=== PATIENT | female | born 1955 ===

== ENCOUNTER 2021-04-09 22:47 | Inpatient (IN) | payer MEDICARE, MEDICAID ==
[~2021-04-09] VITALS: Ht 154.9 cm; Wt 62.7 kg
[2021-04-10] VITALS (7 sets, daily range): BP systolic 130–148; BP diastolic 55–84; PULSE 57–66; TEMP 97.3–98.4
[2021-04-10] MEDS ORDERED: GLUCOPHAGE500 MG/TAB PO (01:30)
[2021-04-10] MEDS ORDERED: NORVASC 5MG5 MG/TAB PO (01:30)
[2021-04-10] MEDS ORDERED: ZOCOR 20MG20 MG PO (01:31)
[2021-04-10] MEDS ORDERED: PROZAC 20MG20 MG PO (01:31)
[2021-04-10] MEDS ORDERED: PROTONIX 40MG T40 MG PO (01:31)
[2021-04-10] MEDS ORDERED: XANAX 1MG1 MG PO (01:31)
[2021-04-10] MEDS ORDERED: OZEMPIC0.25 MG/0. SQ (01:32)
[2021-04-10] MEDS ORDERED: DITROPAN 5MG TAB5 MG PO (01:32)
[2021-04-10] MEDS ORDERED: SINGULAIR 110 MG/TAB PO (01:33)
[2021-04-10] MEDS ORDERED: MOBIC15 MG PO (01:33)
[2021-04-10] MEDS ORDERED: TOPROL XL100 MG PO (01:33)
[2021-04-10] MEDS ORDERED: NORCO 325 MG-7.1 TAB PO (01:33)
[2021-04-10] MEDS ORDERED: SYNTHROID0.175 MG PO (01:34)
[2021-04-10] MEDS ORDERED: ASPIRIN 81M81 MG/TA2 PO (01:34)
[2021-04-10] MEDS ORDERED: NEURONTIN100 MG/CAP PO (01:34)
[2021-04-10 01:35] LABS: MUCOUS Present /lpf; PH 6 (5-8); SQUAMOUS EPITHELIAL None Seen /hpf; URINE APPEARANCE Clear; URINE BACTERIA None Seen /hpf; URINE BILIRUBIN Negative (NEGATIVE); URINE BLOOD 3+ (NEGATIVE); URINE COLOR Yellow; URINE GLUCOSE Negative (NEGATIVE); URINE KETONE Negative (NEGATIVE); URINE LEUKOCYTE ESTERASE 1+ (NEGATIVE); URINE NITRATE Negative (NEGATIVE); URINE PROTEIN(semi-quant) 1+ (NEGATIVE); URINE RBC 20-50 /hpf; URINE UROBILINOGEN Negative (NEGATIVE)
[2021-04-10 01:50] LABS: COLLECTION METHOD CLEAN CATCH
[2021-04-10 03:42] LABS: CALCIUM 8.2 mg/dL (8.4-10.2); CREATININE, serum 0.85 mg/dL (0.57-1.11); POTASSIUM 3.3 mmol/L (3.5-4.5)
--- NOTE | 2021-04-10 05:41 | NUR ---
pt arrived to medical floor at midnight to room 310 via stretcher by ems. pt is a/ox3, vss, 02 room air, collazo patent and draining noted, IV pt admitted with infiltrated this nurse DC'd it and initiated new one. pt reports pain to back 02/20, pt reports diahhrea, denies n,v. Pt is uneasy on feet and is SBA. N/s infusing at 250ml/hr to left forearm IV, sodium Bicard drip infusing 50ml/hr piggyback. pt oriented to room, hospital policy. med rec complete. all questions/concerns answered.
[2021-04-10 06:39] LABS: BASO # 0.1 (0.0-0.2); BASO % 0.8 % (0.0-2.0); EOS # 0.4 (0.0-0.7); EOS % 3.8 % (0-4.0); GRAN # 7.9 (1.4-6.5); GRAN % 74.7 % (42.2-75.2); HEMATOCRIT 37.3 % (37.0-47.0); HEMOGLOBIN 12.7 g/dl (12.5-16.0); LYMPH # 1.5 (1.2-3.4); LYMPH % 14.3 % (20.0-51.0); MEAN CELL VOLUME 98 fl (80.0-100.0); MEAN CORPUSCULAR HEMOGLOBIN 33 pg (27.0-31.0); MEAN CORPUSCULAR HGB CONC 34 g/dl (33.0-37.0); MEAN PLATELET VOLUME 9.5 fl (7.4-10.4); MONO # 0.6 (0.1-0.6); PLATELET COUNT 287 K/mm3 (130-400); RED BLOOD COUNT 3.82 M/mm3 (4.10-5.30); REDCELL DISTRIBUTION WIDTH-CV 14.3 % (11.5-14.5)
[2021-04-10 07:14] LABS: CREATININE, serum 0.85 mg/dL (0.57-1.11); POTASSIUM 4.2 mmol/L (3.5-4.5)
--- NOTE | 2021-04-10 07:50 | NUR ---
PT IN BATHROOM, ATTEMPTED TO GET UP AND FELL ON THE FLOOR IN THE BATHROOM. ON ASSESSMENT THE PATIENT DOES NOT HAVE ANY VISIBLE INJURIES. PATIENT DID NOT HIT HER HEAD. PRIMARY RN, CHAR WAS NOTIFIED.
--- NOTE | 2021-04-10 10:16 | NUR ---
Pt awake upon entry to room, OT in room with Pt. No C/O pain at this time. Shift assessment complete, left Pt call light in reach, Pt sitting in recliner, chair alarm on.
--- NOTE | 2021-04-10 14:17 | NUR ---
roundhouse worker met with patient to discuss discharge plan. Patient reports to living at her apartment prior to coming here. Patient's is currently residing at [facility] in [place], [place]. Patient reports to having children but was unable to tell me how many she had, where they're at and phone numbers to them. She was able to recall that one of her children is "Kanwal" and "thinks" she lives in [place], [place] but that Kanwal refuses to give her mother her phone number. Reports that she has a neighbor named Harjit ([phone]) who drives her to visit her every Friday.Patients reports that prior to admission she had been fully independent with activities of daily living and does not utilize any medical equipment to assist with mobility. Patient reports that she has a PCP and "thinks" that her name is Samantha at [facility]. Patient reports that she uses the [facility] for perscriptions. roundhouse worker educated the patient that PT/OT recommend a SNF placement and the patient verbalizes her agreement and states that she want's to go where her is at. This medical social consultant contacted and faxed a referral to [facility] who states they are able to accept the patient. Facility reports that the emergency contact listed for the patients is his niece Meenakshi ([phone]). *Discharge plan: [facility]*
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
--- NOTE | 2021-04-10 16:25 | NUR ---
Yvonne from [facility] contacted me asking about possible dc. [facility] is willing to come pick the patient up, but asks for frequent updates so they can arrange transportation. Patient and physician notified of acceptance.
[2021-04-11 03:21] VITALS: BP 144/66; PULSE 59; TEMP 98.4
--- NOTE | 2021-04-11 07:35 | NUR ---
RECEIVED REPORT FROM WENDI. PT SITTING UPRIGHT IN BED. ASSISTED PT TO CHAIR. STAT LOCK REPLACED ON ERAZO DUE TO PREVIOUS NO LONGER ATTACHED. ALL NEEDS ASKED AND ADDRESSED. CHAIR ALARM TURNED ON. ADVISED TO CALL FOR ASSISTANCE TO STAND UP AND MOVE.
[2021-04-11 08:02] LABS: BASO # 0.1 (0.0-0.2); BASO % 0.6 % (0.0-2.0); EOS # 0.3 (0.0-0.7); EOS % 3.2 % (0-4.0); GRAN % 69.3 % (42.2-75.2); HEMATOCRIT 37.5 % (37.0-47.0); HEMOGLOBIN 12.7 g/dl (12.5-16.0); LYMPH # 1.7 (1.2-3.4); LYMPH % 19.7 % (20.0-51.0); MEAN CELL VOLUME 97 fl (80.0-100.0); MEAN CORPUSCULAR HEMOGLOBIN 33 pg (27.0-31.0); MEAN CORPUSCULAR HGB CONC 34 g/dl (33.0-37.0); MEAN PLATELET VOLUME 9.8 fl (7.4-10.4); MONO # 0.6 (0.1-0.6); MONO % 6.7 % (1.7-9.3); PLATELET COUNT 280 K/mm3 (130-400); RED BLOOD COUNT 3.85 M/mm3 (4.10-5.30); REDCELL DISTRIBUTION WIDTH-CV 14.1 % (11.5-14.5)
[2021-04-11 08:05] VITALS: BP 155/83; PULSE 54; TEMP 98.9
[2021-04-11 08:31] LABS: CALCIUM 8.5 mg/dL (8.4-10.2); CREATININE, serum 0.8 mg/dL (0.57-1.11); POTASSIUM 3.3 mmol/L (3.5-4.5)
[2021-04-11 11:18] VITALS: BP 127/59; PULSE 50; TEMP 98.7
[2021-04-11 16:00] VITALS: BP 125/61; PULSE 52; TEMP 97.9
--- NOTE | 2021-04-11 16:04 | NUR ---
Typesetting Machine Operator/Tender spoke with Yvonne at [facility] and advised that patient will be ready for discharge tomorrow. Yvonne advised that she will bulk picker patient tomorrow afternoon. RACHEL was contacted by [employer] Typesetting Machine Operator/Tender out of [place] and provided update. Discharge Plan: [facility]
--- NOTE | 2021-04-11 19:06 | NUR ---
REPORT GIVEN TO ANNELISE HUGHES
[2021-04-11 20:17] VITALS: BP 100/50; PULSE 60; TEMP 98.4
[2021-04-11 23:43] VITALS: BP 135/76; PULSE 56; TEMP 98.5
[2021-04-12 04:08] VITALS: BP 146/79; BP 165/77; PULSE 57; TEMP 98.1
[2021-04-12 06:56] LABS: BASO # 0.1 (0.0-0.2); BASO % 0.7 % (0.0-2.0); EOS # 0.4 (0.0-0.7); EOS % 3.9 % (0-4.0); GRAN # 6.1 (1.4-6.5); GRAN % 68.3 % (42.2-75.2); HEMATOCRIT 41.1 % (37.0-47.0); HEMOGLOBIN 14.1 g/dl (12.5-16.0); LYMPH # 1.8 (1.2-3.4); LYMPH % 19.9 % (20.0-51.0); MEAN CELL VOLUME 98 fl (80.0-100.0); MEAN CORPUSCULAR HEMOGLOBIN 34 pg (27.0-31.0); MEAN CORPUSCULAR HGB CONC 34 g/dl (33.0-37.0); MEAN PLATELET VOLUME 10.2 fl (7.4-10.4); MONO # 0.6 (0.1-0.6); MONO % 6.8 % (1.7-9.3); PLATELET COUNT 304 K/mm3 (130-400); RED BLOOD COUNT 4.21 M/mm3 (4.10-5.30)
[2021-04-12 07:56] LABS: CALCIUM 8.8 mg/dL (8.4-10.2); CREATININE, serum 0.86 mg/dL (0.57-1.11); POTASSIUM 3.9 mmol/L (3.5-4.5)
--- NOTE | 2021-04-12 08:14 | NUR ---
Resident complained of being cold. Added blankets for warmth. She is sitting up in bed eating breakfast.
[2021-04-12 08:18] VITALS: BP 154/74; PULSE 51; TEMP 98
--- NOTE | 2021-04-12 11:38 | NUR ---
Bookie collaborated with Yvonne at [facility] who advised transportation would arrive between 1430 and 1600. Yvonne to contact RACHEL Leigh when transportation is on the way. RACHEL faxed discharge orders to fax# [phone].
[2021-04-12 11:51] VITALS: BP 126/65; PULSE 49; TEMP 97.8
[2021-04-12 12:54] VITALS: BP 126/65; PULSE 49; TEMP 97.8
--- NOTE | 2021-04-12 12:57 | NUR ---
SW collaborated with RACHEL Connolly, and informed patient of arranged transportation. This SW also had patient sign IM letter, gave a copy to patient in her room and placed original in patient's chart.
--- NOTE | 2021-04-12 13:43 | NUR ---
Primary nurse was assisted with [id number] patient care by [employer] student Nat Bell and [employer] instructor Viv Villarreal MSN, RN
== END 2021-04-12 14:35 | DRG 683 ==
LOC: MEDICAL 22:47
PROVIDERS: Physician Assistant; Student in an Organized Health Care Education/Training Program; ADMIT Family Medicine
DX: N17.9 Acute kidney failure, unspecified (principal); M62.82 Rhabdomyolysis; N39.0 Urinary tract infection, site not specified; E44.0 Moderate protein-calorie malnutrition; E87.2 Acidosis; E03.9 Hypothyroidism, unspecified; I10 Essential (primary) hypertension; F32.9 Major depressive disorder, single episode, unspecified; F41.9 Anxiety disorder, unspecified; G89.29 Other chronic pain; K21.9 Gastro-esophageal reflux disease without esophagitis; E11.40 Type 2 diabetes mellitus with diabetic neuropathy, unspecified; R19.7 Diarrhea, unspecified; F17.210 Nicotine dependence, cigarettes, uncomplicated; E87.6 Hypokalemia; R62.7 Adult failure to thrive
CPT/HCPCS: 99223-AI; 99232-AI; 99233-AI; 99239; J0696; J3475; J7030